=== PATIENT | male | born 2000 | race Caucasian/White ===

== ENCOUNTER 2022-01-29 10:00 | Emergency (ER) | payer SELFPAY ==
[2022-01-29] MEDS ORDERED: Ketorolac Tromethamine 30 MG/ML VIAL ONE (10:26)
[2022-01-29] MEDS ORDERED: Sodium Chloride 0.9% 1,000 ML ONE (10:26)
[2022-01-29] MEDS ORDERED: diphenhydrAMINE 50 MG/ML VIAL ONE (10:26)
== END 2022-01-29 11:00 | disposition home or self-care (01) ==
LOC: MADERS 10:00
DX: R51.9 Headache, unspecified (principal); E11.9 Type 2 diabetes mellitus without complications
CPT/HCPCS: 96374; 96375; J1200; J1885; J7050

== ENCOUNTER 2022-02-09 08:29 | Emergency (ER) | payer OTHER | END 2022-02-09 09:15 | disposition home or self-care (01) | LOC: MADERS 08:29 | DX: S43.402A Unspecified sprain of left shoulder joint, initial encounter (principal); S29.012A Strain of muscle and tendon of back wall of thorax, initial encounter; E11.9 Type 2 diabetes mellitus without complications; X50.0XXA Overexertion from strenuous movement or load, initial encounter; Y92.69 Other specified industrial and construction area as the place of occurrence of the external cause | CPT/HCPCS: 99283 ==